=== PATIENT | female | born 1995 | race Caucasian/White ===

== ENCOUNTER 2021-09-08 11:37 | Observation (INO) ==
[2021-09-08] MEDS ORDERED: SODIUM CHLORIDE 0.9% 500 ML IV STA (11:51)
[2021-09-08] MEDS ORDERED: SODIUM CHLORIDE 0.9% 1000ML 1,000 ML IV ONE (12:25)
[2021-09-08] MEDS ORDERED: ONDANSETRON INJ 2 MG/ML 2 ML VIAL IV STA (12:25)
[2021-09-08 12:31] LABS: POC Urine Bilirubin Negative (Negative); POC Urine Blood 250 (Negative); POC Urine Glucose Normal (Normal); POC Urine Ketones Negative (Negative); POC Urine Leukocytes Trace (Negative); POC Urine Nitrite Negative (Negative); POC Urine Protein 1+ (Negative); POC Urine Urobilinogen Normal (Normal); POC Urine pH 6 (4.5-7.5)
--- NOTE | 2021-09-08 12:31 | Emergency Department Note ---
Impression & Plan Hydronephrosis, right, Right ureteral calculus, Right flank pain ED Provider Note NAME: ISABEL GAYLE AGE: 26 SEX: F : 1995 ARRIVES VIA: Walk-In INFORMANT: Patient, ED PROVIDER(S): Quentin Morin DO CHIEF COMPLAINT: Flank pain HPI: The patient is a 26-year-old female who presented to the emergency department for an evaluation of flank pain. The patient presented with her mother. She was at the urology office and was sent to the emergency department for further evaluation. The patient has been dealing with flank pain for almost a month. It sounds like she was recently seen at [facility] and diagnosed with a distal ureteral calculus which was very large. She was followed up by urology today but appeared to be in significant pain. She also stated that she was having severe pain severe nausea severe vomiting and unable to keep down any of her medications. She was sent to the emergency department f or further evaluation as well as possible evaluation by the urologist for further management. The patient states her pain is moderate to severe. It is worsened with ambulation. She did take pain medication but has been having vomiting so she is unsure if this medication is helping her. She denies having any fever. She denies having any diarrhea. She denies chest pain. ROS: See above HPI for pertinent positives & negatives. A total of 10 systems reviewed and were otherwise negative. PAST MEDICAL HISTORY: See Below PAST SURGICAL HISTORY: See Below FAMILY HISTORY: See Below SOCIAL HISTORY: See Below HOME MEDICATIONS: See Below ALLERGIES: See Below VITALS: See Below PHYSICAL EXAMINATION: GENERAL: The patient is awake and alert. She is very anxious appearing and appears to be in significant pain. EYES: The conjunctivae are clear. The pupils are round and reactive. EARS, NOSE, MOUTH AND THROAT: The nose is without any evidence of any deformity. NECK: The neck is nontender and supple. RESPIRATORY: Normal respiratory effort is noted there is no evidence of wheezing rhonchi or rales CARDIOVASCULAR: Regular rate and rhythm noted there no murmurs rubs or gallops normal S1 normal S2. GASTROINTESTINAL: The abdomen is soft and mildly distended. There is no guarding or rigidity appreciated. BACK: No midline tenderness was noted. Significant right CVA tenderness was noted to percussion. MUSCULOSKELETAL/EXTREMITIES: There is no evidence of gross deformity full range of motion is noted in the hips and shoulders. SKIN: There is no obvious evidence of any rash. There are no petechiae, pallor or cyanosis noted. NEUROLOGIC: Patient is awake alert and oriented x3 strength is symmetric patellar reflexes are 2+ bilaterally MEDICAL DECISION MAKING: The patient is a 26-year-old female who presented to the emergency department for right-sided flank pain. The patient was recently diagnosed with ureteral calculi. She had a CAT scan in outside facility. She was following up with urology today but appeared to be in very significant pain. She has a very large ureteral calculus on her most recent CAT scan from [facility]. On ultrasound today she does have hydronephrosis. On KUB there is a suggestion of a ureteral calculus overlying the sacrum. I discussed this case with on-call urology. They have agreed to evaluate the patient in the emergency department. Likely she may require stenting to relieve the hydronephrosis but also will need to have something done with this large distal ureteral calculus. I discussed this plan with the patient. She was agreeable. She was treated with IV fluids and IV pain medication. She was also noted to have an elevation in her peripheral white blood cell count. She was treated with IV antibiotics. I also discussed her case with the on-call [facility] hospitalist group. They have agreed to evaluate the patient in the emergency department. Triage Nursing notes reviewed. Prior medical records reviewed Vital Signs: reviewed and remarkable for no significant abnormalities Differential diagnosis: Renal colic, UTI, appendicitis, diverticulitis, mesenteric ischemia, aortic pathology, infections, inflammatory bowel disease, PUD, biliary pathology, as well as other pathologies. ER treatment provided: See below Diagnostics interpreted by me: ECG: none Cardiac Monitoring: An order was placed for continuous cardiac monitoring. The monitor shows a rate of 62 bpm with sinus rhythm. Laboratory studies: As stated above and show below. Imaging studies: See below Consultation(s): I discussed this case with Kae who is on-call for the [facility] urology group. They will evaluate the patient in the emergency department for further management. I discussed this [facility]/Surg History Medical History Hydronephrosis, right Right ureteral calculus Social History Feels Safe at Home: Yes Allergies Allergies Allergy/AdvReac Type Severity Reaction Status Date / Time No Known Allergies Allergy Unverified 09/08/21 14:20 Home Meds Home Medications Medication Instructions Recorded Confirmed diclofenac sodium 50 mg 50 mg PO BID PRN 09/08/21 09/08/21 tablet,delayed release hydrocodone 5 mg-acetaminophen 325 1 tab PO DAILY PRN 09/08/21 09/08/21 mg tablet tamsulosin 0.4 mg capsule 0.4 mg PO QAM 09/08/21 09/08/21 Results & Data (ED) Vital Signs Vital Signs - 24 hr 09/08/21 11:49 09/08/21 12:30 09/08/21 12:33 Temperature 36.5 C Temperature Source Oral Pulse Rate 83 78 Pulse Rate [Apical] 69 Pulse Rate from SpO2 Sensor 72 Pulse Rhythm Regular Pulse Strength Normal Respiratory Rate 20 19 20 Respiratory Effort / Characteristics Non-Labored Spontaneous Non-Labored Spontaneous Respiratory Depth Normal Normal Respiratory Pattern Regular Regular Blood Pressure 114/70 Blood Pressure [Right Arm] 111/82 Blood Pressure Mean 84 Blood Pressure Mean [Right Arm] 91 Pulse Oximetry 100 96 Oxygen Delivery Method Room Air Room Air Sepsis Recent Fever Within 48 Hours No Sepsis New/Unexplained Change in Mental Status N/A Sepsis Action Taken by Nursing No Action Required 09/08/21 13:05 09/08/21 13:52 09/08/21 14:40 Temperature Temperature Source Pulse Rate 78 85 62 Pulse Rate [Apical] Pulse Rate from SpO2 Sensor 82 Pulse Rhythm Pulse Strength Respiratory Rate 13 16 20 Respiratory Effort / Characteristics Respiratory Depth Respiratory Pattern Blood Pressure 122/76 111/72 Blood Pressure [Right Arm] Blood Pressure Mean 91 85 Blood Pressure Mean [Right Arm] Pulse Oximetry 99 99 Oxygen Delivery Method Room Air Sepsis Recent Fever Within 48 Hours Sepsis New/Unexplained Change in Mental Status Sepsis Action Taken by [facility] Medications Current Medication List: was personally reviewed by me Laboratory Data Attestation: I reviewed the patient's lab results. Result diagrams: 09/08/21 12:20 09/08/21 12:20 Lab Results 09/08/21 09/08/21 09/08/21 Range/Units 12:17 12:17 12:20 WBC 15.36 H (4.8-10.8) K/uL RBC 4.55 (4.2-5.4) M/uL Hgb 13.6 (12.0-16.0) g/dL Hct 40.9 (37-47) % MCV 89.9 (80-100) fL MCH 29.9 (25-34) pg MCHC 33.3 (32-36) g/dL RDW Std Deviation 44.1 (36.4-46.3) fL RDW Coeff of Cady 13.4 (11.5-14.5) % Plt Count 284 (130-400) K/uL MPV 9.4 (7.4-10.4) fL Sodium (136-145) mmol/L Potassium (3.5-5.1) mmol/L Chloride (98-107) mmol/L Carbon Dioxide (21-32) mmol/L Anion Gap (3-11) BUN (7-18) mg/dl Creatinine (0.6-1.2) mg/dl Est Cr Clr Drug Dosing ml/min Est GFR ( Amer) ml/min Est GFR (Non-Af Amer) ml/min BUN/Creatinine Ratio (10-20) Glucose (70-99) mg/dl Calcium (8.5-10.1) mg/dl HCG, Qual (Negative) Urine Color Yellow Urine Appearance Clear (Clear) Urine pH 8.0 H (4.5-7.5) POC Urine pH 6 (4.5-7.5) Ur Specific Ambrose 1.019 (1.000-1.030) Urine Protein Negative (Negative) POC Urine Protein 1+ H (Negative) Urine Glucose (UA) Negative (Negative) POC Ur Glucose (UA) Normal (Normal) Urine Ketones 1+ H (Negative) POC Urine Ketones Negative (Negative) Urine Blood 2+ H (Negative) POC Urine Blood 250 H (Negative) Urine Nitrite Negative (Negative) POC Urine Nitrite Negative (Negative) Urine Bilirubin Negative (Negative) POC Urine Bilirubin Negative (Negative) Urine Urobilinogen Negative (Negative) POC Urine Urobilinogen Normal (Normal) Ur Leukocyte Esterase Negative (Negative) POC U Leukocyte Esteras Trace H (Negative) Urine WBC (Auto) 5-10 H (0-5) /hpf Urine RBC (Auto) 10-30 H (0-4) /hpf U Hyaline Cast (Auto) 1-5 (0-5) /lpf U Epithel Cells (Auto) 20-30 H (0-5) /lpf Urine Bacteria (Auto) Negative (Negative) POC Ur Test NEG (NEG) COVID-19 Eval Order SARS-CoV-2 (PCR) (Negative) 09/08/21 09/08/21 09/08/21 Range/Units 12:20 13:06 13:06 WBC (4.8-10.8) K/uL RBC (4.2-5.4) M/uL Hgb (12.0-16.0) g/dL Hct (37-47) % MCV (80-100) fL MCH (25-34) pg MCHC (32-36) g/dL RDW Std Deviation (36.4-46.3) fL RDW Coeff of Cady (11.5-14.5) % Plt Count (130-400) K/uL MPV (7.4-10.4) fL Sodium 138 (136-145) mmol/L Potassium 4.1 (3.5-5.1) mmol/L Chloride 107 (98-107) mmol/L Carbon Dioxide 23 (21-32) mmol/L Anion Gap 8.0 (3-11) BUN 12 (7-18) mg/dl Creatinine 0.99 (0.6-1.2) mg/dl Est Cr Clr Drug Dosing 84.5 ml/min Est GFR ( Amer) 91.8 ml/min Est GFR (Non-Af Amer) 79.2 ml/min BUN/Creatinine Ratio 11.8 (10-20) Glucose 108 H (70-99) mg/dl Calcium 9.4 (8.5-10.1) mg/dl HCG, Qual (Negative) Urine Color Urine Appearance (Clear) Urine pH (4.5-7.5) POC Urine pH (4.5-7.5) Ur Specific Ambrose (1.000-1.030) Urine Protein (Negative) POC Urine Protein (Negative) Urine Glucose (UA) (Negative) POC Ur Glucose (UA) (Normal) Urine Ketones (Negative) POC Urine Ketones (Negative) Urine Blood (Negative) POC Urine Blood (Negative) Urine Nitrite (Negative) POC Urine Nitrite (Negative) Urine Bilirubin (Negative) POC Urine Bilirubin (Negative) Urine Urobilinogen (Negative) POC Urine Urobilinogen (Normal) Ur Leukocyte Esterase (Negative) POC U Leukocyte Esteras (Negative) Urine WBC (Auto) (0-5) /hpf Urine RBC (Auto) (0-4) /hpf U Hyaline Cast (Auto) (0-5) /lpf U Epithel Cells (Auto) (0-5) /lpf Urine Bacteria (Auto) (Negative) POC Ur Test (NEG) COVID-19 Eval Order Covid19 at [facility] SARS-CoV-2 (PCR) NEGATIVE (Negative) 09/08/21 Range/Units 14:00 WBC (4.8-10.8) K/uL RBC (4.2-5.4) M/uL Hgb (12.0-16.0) g/dL Hct (37-47) % MCV (80-100) fL MCH (25-34) pg MCHC (32-36) g/dL RDW Std Deviation (36.4-46.3) fL RDW Coeff of Cady (11.5-14.5) % Plt Count (130-400) K/uL MPV (7.4-10.4) fL Sodium (136-145) mmol/L Potassium (3.5-5.1) mmol/L Chloride (98-107) mmol/L Carbon Dioxide (21-32) mmol/L Anion Gap (3-11) BUN (7-18) mg/dl Creatinine (0.6-1.2) mg/dl Est Cr Clr Drug Dosing ml/min Est GFR ( Amer) ml/min Est GFR (Non-Af Amer) ml/min BUN/Creatinine Ratio (10-20) Glucose (70-99) mg/dl Calcium (8.5-10.1) mg/dl HCG, Qual Negative (Negative) Urine Color Urine Appearance (Clear) Urine pH (4.5-7.5) POC Urine pH (4.5-7.5) Ur Specific Ambrose (1.000-1.030) Urine Protein (Negative) POC Urine Protein (Negative) Urine Glucose (UA) (Negative) POC Ur Glucose (UA) (Normal) Urine Ketones (Negative) POC Urine Ketones (Negative) Urine Blood (Negative) POC Urine Blood (Negative) Urine Nitrite (Negative) POC Urine Nitrite (Negative) Urine Bilirubin (Negative) POC Urine Bilirubin (Negative) Urine Urobilinogen (Negative) POC Urine Urobilinogen (Normal) Ur Leukocyte Esterase (Negative) POC U Leukocyte Esteras (Negative) Urine WBC (Auto) (0-5) /hpf Urine RBC (Auto) (0-4) /hpf U Hyaline Cast (Auto) (0-5) /lpf U Epithel Cells (Auto) (0-5) /lpf Urine Bacteria (Auto) (Negative) POC Ur Test (NEG) COVID-19 Eval Order SARS-CoV-2 (PCR) (Negative) Administered Medications Morphine Sulfate (Morphine Sulfate 4 Mg/Ml 1 Ml Carp\Vial) 4 mg IV Q30M PRN PRN Reason: Pain Stop: 09/22/21 12:24 Last Admin: 09/08/21 13:53 Dose: 4 mg Documented by: [id number] Admin: 09/08/21 12:32 Dose: 4 mg Documented by: [id number] Discontinued Medications Sodium Chloride (Nss) 500 mls @ 999 mls/hr IV .Q31M STA Stop: 09/08/21 12:21 Last Admin: 09/08/21 12:32 Dose: Not Given Documented by: [id number] Sodium Chloride (Nss 1000ml) 1,000 mls @ 999 mls/hr IV .Q1H1M ONE Stop: 09/08/21 13:25 Last Infusion: 09/08/21 13:54 Dose: 0 mls/hr Documented by: [id number] Admin: 09/08/21 12:31 Dose: 999 mls/hr Documented by: [id number] Ceftriaxone Sodium (Rocephin) 1,000 mg in 50 mls @ 100 mls/hr IV NOW STA Stop: 09/08/21 13:59 Last Infusion: 09/08/21 14:58 Dose: 0 mls/hr Documented by: [id number] Admin: 09/08/21 14:15 Dose: 100 mls/hr Documented by: [id number] Ondansetron HCl (Ondansetron Inj 2 Mg/Ml 2 Ml Vial) 4 mg IV NOW STA Stop: 09/08/21 12:26 Last Admin: 09/08/21 12:31 Dose: 4 mg Documented by: [id number] Imaging Data Radiologist's Impression: KUB X-Ray 09/08/21 12:25 XR KUB/Abdomen 1 view CLINICAL HISTORY: right flank pain. COMPARISON STUDY: No previous studies for comparison. TECHNIQUE: Single view of the abdomen. FINDINGS: The bowel gas pattern is within normal limits without evidence for dilatation or obstruction. Surgical clips are present previous cholecystectomy. There is no evidence for organomegaly or gross intra-abdominal mass. There is an approximately 7 mm calcific density superimposed over the second sacral segment on the right. A mid ureteral calculus cannot be excluded. 1 to 2 mm calcification are also seen within the pelvis on the right which probably represent phleboliths. Distal ureteral calculus cannot be excluded. No acute osseous pathology. IMPRESSION: 1.Multiple calcifications are present on the right which may be within the ureter as noted. If indicated clinically, CT of the abdomen and pelvis without contrast would be the study of choice for further evaluation. ACT 112: Negative or not required by law. Electronically signed by: Denton Brooke M.D. 09/08/2021 1:53 PM Renal Ultrasound 09/08/21 12:25 RENAL ULTRASOUND CLINICAL HISTORY: Right flank pain. COMPARISON STUDY: None. TECHNIQUE: Sonography of the kidneys and the urinary bladder was performed. FINDINGS: Right kidney measures 12.7 x 5.7 x 7.1 cm and the left measures 11.8 x 5.1 x 4.8 cm. There is moderate to severe right hydroureteronephrosis. A ureteral calculus is not visualized however these may be sonographically occult. A 9 mm cyst within the left kidney is present. There is no left hydronephrosis. There is a probable 5 mm right renal calculus. There is an apparent 8 mm hypoechoic focus within an upper pole calyx. This is of questionable significance. Bladder is suboptimally assessed given underdistention. Ureteral jets were not visualized. IMPRESSION: 1. Moderate to severe right hydroureteronephrosis. No ureteral calculus identified although these may be occult by sonography. 2. 5 mm right renal calculus. ACT 112: Negative or not required by law. Electronically signed by: Aj Davidson M.D. 09/08/2021 1:02 PM Discharge Plan Visit Data Chief Complaint: Kidney Stone Stated Complaint: RT SIDED KIDNEY STONES ED Provider: Quentin Morin Discharge Problem: Hydronephrosis, right, Right ureteral calculus, Right flank pain Patient Disposition: Being Evaluated by Hospitalist Forms Stand Alone Forms: [facility] Prescriptions Prescriptions: No Action hydrocodone-acetaminophen 5-325 mg tablet 1 tab PO DAILY PRN (Reason: Pain) RF: 0 tamsulosin 0.4 mg capsule 0.4 mg PO QAM RF: 0 diclofenac sodium 50 mg tablet,delayed release (DR/EC) 50 mg PO BID PRN (Reason: Pain) RF: 0 Referrals Referrals: Unknown,Unknown [] -
[2021-09-08] MEDS: MoRPHine SULFATE 4 MG/ML 1 ML CARP\\VIAL IV PRN ×2 (12:32→13:53)
[2021-09-08 12:36] LABS: Hematocrit (blood only) 40.9 % (37-47); Hemoglobin 13.6 g/dL (12.0-16.0); Mean Corpuscular Hemoglobin 29.9 pg (25-34); Mean Corpuscular Hgb Conc 33.3 g/dL (32-36); Mean Corpuscular Volume 89.9 fL (80-100); Mean Platelet Volume 9.4 fL (7.4-10.4); Platelet Count 284 K/uL (130-400); RDW Coefficient of Variation 13.4 % (11.5-14.5); RDW Standard Deviation 44.1 fL (36.4-46.3); Red Blood Count 4.55 M/uL (4.2-5.4); White Blood Count 15.36 K/uL (4.8-10.8)
[2021-09-08 12:44] LABS: Appearance Urine Clear (Clear); Bacteria Urine Automated Negative (Negative); Bilirubin Urine Negative (Negative); Blood Urine 2+ (Negative); Color Urine Yellow; Epithelial Cell Urine Auto 20-30 /lpf (0-5); Glucose Urine UA Negative (Negative); Ketones Urine 1+ (Negative); Leukocyte Esterase Urine Negative (Negative); Nitrite Urine Negative (Negative); Protein Urine Negative (Negative); Specific Gravity Urine 1.019 (1.000-1.030); Urobilinogen Urine Negative (Negative)
[2021-09-08 12:57] LABS: BUN Creatinine Ratio 11.8 (10-20); Calcium 9.4 mg/dl (8.5-10.1); Creatinine Clr Calc Pharmacy 84.5 ml/min; Est GFR (African American) 91.8 ml/min; Est GFR (Non-African American) 79.2 ml/min; Potassium 4.1 mmol/L (3.5-5.1)
--- NOTE | 2021-09-08 13:04 | Ultrasound Report ---
RENAL ULTRASOUND CLINICAL HISTORY: Right flank pain. COMPARISON STUDY: None. TECHNIQUE: Sonography of the kidneys and the urinary bladder was performed. FINDINGS: Right kidney measures 12.7 x 5.7 x 7.1 cm and the left measures 11.8 x 5.1 x 4.8 cm. There is moderate to severe right hydroureteronephrosis. A ureteral calculus is not visualized however thes e may be sonographically occult. A 9 mm cyst within the left kidney is present. There is no left hydr onephrosis. There is a probable 5 mm right renal calculus. There is an apparent 8 mm hypoechoic focus within an upper pole calyx. This is of questionable significance. Bladder is suboptimally assessed g iven underdistention. Ureteral jets were not visualized. IMPRESSION: 1. Moderate to severe right hydroureteronephrosis. No ureteral calculus identified although these may be occult by sonography. 2. 5 mm right renal calculus. ACT 112: Negative or not required by law. Electronically signed by: Aj Davidson M.D. 09/08/2021 1:02 PM
[2021-09-08] MEDS ORDERED: cefTRIAXone SODIUM 1,000 MG/50 ML BAG IV STA (13:30)
--- NOTE | 2021-09-08 13:40 | History & Physical Report ---
Date of Service September 08, 2021 Assessment & Plan (1) Hydronephrosis, right: Plan: - Admit to [facility] - Continue with IVFs, pain control, bowel regimen - Imaging reviewed: Renal U/S here today showed moderate to severe right hydroureteronephrosis. No ureteral calculus identified although these may be occult by sonography. 5 mm right renal calculus. - Imaging from [place] showed 8.6 mm calculus proximal R ureter at R UPJ with moderate hydronephrosis on 09/03. - Keep NPO for now with anticipated stent placement / stone removal - Urology consulted - appreciate recs - Leukocytosis with WBC 15.36, afebrile - IV ceftriaxone for preop - Last PO intake was last night, pt does not take any medications routinely, continue IVFs - UA appears clear, follow urine culture, Hcg negative - COVID-19 negative on admission, recommended vaccination at bedside as pt is n ot vaccinated. - Mother at bedside, all questions and concerns were addressed (2) Right ureteral calculus: Plan: - As above (3) Bilateral nephrolithiasis: Plan: - As above (4) Right flank pain: Plan: - As above DVT ppx: - teds, ambulatory CODE: Full Dispo: From home, likely to remain in the hospital x 1-2 days History of Present Illness Chief Complaint: flank pain Primary Care Provider: Tom Jimenez This is a 26 yo F without significant PMHx of who presents with R flank pain, nausea, vomiting and chills that has been ongoing since Saturday. She reports having generalized abdominal pain on and off for the past month but thought that it was related to something she ate, dehydration, etc. She presented on Saturday night (5 days ago) to [facility] due to worsening abdominal pain, was found to have kidney stone and moderate hydronephrosis and was given prescription for hydrocodone, flomax and diclofenac sodium, with instructions to follow-up with urology as an outpatient. Her pain has progressed since then, abdominal pain rated as 7/10, radiates to R flank and RLQ, and has been nauseous/vomiting x24 hours. Denies fever, chills or sweats. She denies ever having previous kidney stone, and does not think anything passed since last being seen at [facility]. Last menses was 1 week ago, pt is not currently on control. She is not vaccinated for COVID-19. Pt does not take any medications routinely. Last time she ate was last evening at dinner. Patient has leukocytosis with a white count of 15.36, her creatinine is normal at 0.99. UA appears fairly clean, no concern for infection, will follow culture. Ms. Hernandez elected to proceed with cystoscopy, right ureteronephroscopy, retrograde pyelogram, laser destruction or extraction of stone, and right stent insertion. Medical/Surgical Hx: wisdom teeth removal Social Hx: no drinking, non smoking. 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 Has two children who live with her. Family Hx: Father with hx of nephrolithiasis, denies other significant family history. Allergies Allergy/AdvReac Type Severity Reaction Status Date / Time No Known Allergies Allergy Unverified 09/08/21 14:20 Home Medications Medication Instructions Recorded Confirmed Type diclofenac sodium 50 mg 50 mg PO BID PRN 09/08/21 09/08/21 History tablet,delayed release docusate sodium 100 mg capsule 100 mg PO BID #20 cap 09/08/21 Rx ([facility]) hydrocodone 5 mg-acetaminophen 325 1 tab PO DAILY PRN 09/08/21 09/08/21 History mg tablet oxybutynin chloride 5 mg tablet 5 mg PO Q8H PRN #30 tab 09/08/21 Rx sulfamethoxazole 800 1 tab PO BID #6 tab 09/08/21 Rx mg-trimethoprim 160 mg tablet (Bactrim DS) tamsulosin 0.4 mg capsule 0.4 mg PO QAM 09/08/21 09/08/21 History tamsulosin 0.4 mg capsule (Flomax) 0.4 mg PO DAILY #30 cap 09/08/21 Rx Past Med/Surg History Medical History Hydronephrosis, right Right ureteral calculus Social History Smoking Status: Current every day smoker Cigarettes Per Day: 1/2 pack.; Do You Dip or Chew Tobacco: No; Hx Alcohol Use: Yes Hx Substance Use: No Preferred Language: Latvian Laminator Hand Required: No Beliefs That Will Affect Care: None Current Living Situation: Family Feels Safe at Home: Yes Assistive Devices: Glasses Review of Systems Review of Systems: Constitutional: No fever, sweats or chills Eyes: No diplopia, no worsening or blurred vision ENT: normal hearing, no trouble swallowing Respiratory: No cough, sputum, dyspnea at rest or on exertion Cardiovascular: No chest pain, tightness or palpitations Abdomen: As per HPI, + pain, +nausea, +vomiting, no diarrhea or constipation Musculoskeletal: No joint pain, calf pain, swelling Neurologic: No weakness, numbness/tingling, or balance problems Psychiatric: No anxiety or depression Skin: No rash or itch Physical Exam Physical Exam: General: awake, alert, no apparent distress, BMI 25.4 Head: Normocephalic, atraumatic ENT: PERRL, EOMI, no pharyngeal exudate, mucous membranes moist Chest: Clear to auscultation, on room air, no adventitious breath sounds Cardiac: Regular rate and rhythm, no murmur, no JVD, normal peripheral pulses, good capillary refill Abdominal: NABS x 4 quadrants, soft, nondistended, + tender to palpation RLQ and flank region, no rebound or guarding Extremities: Normal inspection, no peripheral edema or erythema, calfs nontender to palpation Psych: Normal mood and affect Neuro: AAO x 3, strength intact bilaterally and rated 5/5, no motor deficits, speech is clear, no peripheral sensory deficits Results & Data Results & Data ([facility]) Vital Signs (Past 12 Hours) Vital Signs Temp Pulse Pulse Resp BP BP Pulse Ox 09/08/21 12:33 69 20 111/82 96 09/08/21 11:49 36.5 C 83 20 114/70 Laboratory Results Short CBC 09/08/21 Range/Units 12:20 WBC 15.36 H (4.8-10.8) K/uL Hgb 13.6 (12.0-16.0) g/dL Hct 40.9 (37-47) % Plt Count 284 (130-400) K/uL BMP 09/08/21 12:20 Sodium 138 Potassium 4.1 Chloride 107 Carbon Dioxide 23 BUN 12 Creatinine 0.99 Glucose 108 H Calcium 9.4 Urine 09/08/21 Range/Units 12:17 Urine Color Yellow Urine Appearance Clear (Clear) Urine pH 8.0 H (4.5-7.5) Ur Specific [place] 1.019 (1.000-1.030) Urine Protein Negative (Negative) Urine Glucose (UA) Negative (Negative) Diagnostic Findings KUB X-Ray 09/08/21 12:25 XR KUB/Abdomen 1 view CLINICAL HISTORY: right flank pain. COMPARISON STUDY: No previous studies for comparison. TECHNIQUE: Single view of the abdomen. FINDINGS: The bowel gas pattern is within normal limits without evidence for dilatation or obstruction. Surgical clips are present previous cholecystectomy. There is no evidence for organomegaly or gross intra-abdominal mass. There is an approximately 7 mm calcific density superimposed over the second sacral segment on the right. A mid ureteral calculus cannot be excluded. 1 to 2 mm calcification are also seen within the pelvis on the right which probably represent phleboliths. Distal ureteral calculus cannot be excluded. No acute osseous pathology. IMPRESSION: 1.Multiple calcifications are present on the right which may be within the ureter as noted. If indicated clinically, CT of the abdomen and pelvis without contrast would be the study of choice for further evaluation. ACT 112: Negative or not required by law. Electronically signed by: Denton Brooke M.D. 09/08/2021 1:53 PM Renal Ultrasound 09/08/21 12:25 RENAL ULTRASOUND CLINICAL HISTORY: Right flank pain. COMPARISON STUDY: None. TECHNIQUE: Sonography of the kidneys and the urinary bladder was performed. FINDINGS: Right kidney measures 12.7 x 5.7 x 7.1 cm and the left measures 11.8 x 5.1 x 4.8 cm. There is moderate to severe right hydroureteronephrosis. A ureteral calculus is not visualized however these may be sonographically occult. A 9 mm cyst within the left kidney is present. There is no left hydronephrosis. There is a probable 5 mm right renal calculus. There is an apparent 8 mm hypoechoic focus within an upper pole calyx. This is of questionable sig nificance. Bladder is suboptimally assessed given underdistention. Ureteral jets were not visualized. IMPRESSION: 1. Moderate to severe right hydroureteronephrosis. No ureteral calculus identified although these may be occult by sonography. 2. 5 mm right renal calculus. ACT 112: Negative or not required by law. Electronically signed by: Aj Davidson M.D. 09/08/2021 1:02 PM Code Status & VTE Plan Code Status Full code Supervising Physician Co-Signing Physician Notes I have seen and examined the patient and have discussed the case with the provider above. I agree with the assessment and plan as stated. The patient is a 26 yo F with no chronic medical history, no use of prescription or OTC medications and no h/o kidney stone in the past who presents with persistent severe R flank pain from a known 8mm UPJ stone on the right. Hydronephrosis on imaging as above. She reports having symptoms intermittently for about one month prior to seeking out care on 09/03 [facility]. She reports her pain is improved since medication given in the ER. She denies any UTI symptoms, chest pain, SOB, fevers. She reports some chills that began this morning. She is currently hemodynamically stable and afebrile and in no acute distress. She is WNWD with warm and dry skin. Heart and lung exam reveal no abnormalities and her abdomen is soft, NT and not distended. She does have R CVA tenderness. She was sent for ureteral stent placement with Dr. Santos shortly following my evaluation. In the OR, bladder appeared injected and was globally inflamed. She had a right pyelogram showing right hydronephrosis and kinking of the ureter made stenting difficult. I evaluated her post-operatively on the floor and she was doing very well. She denied any pain and was tolerating PO. She was inclined to stay overnight to ensure everything was improved and stable in the morning. Plan for dc home in am as long as she is doing well with close outpatient followup with Dr. Montalvo. Uday, DO
--- NOTE | 2021-09-08 13:50 | Urology Consultation ---
Date of Consultation September 08, 2021 Assessment & Plan (1) Right ureteral calculus: (2) Hydronephrosis, right: (3) Right flank pain: 26 year-old female patient admitted with intractable right flank pain with associated nausea/vomiting secondary to obstructing 8 mm right UPJ calculus. -Plan of care reviewed with Dr. Montalvo. -Patient afebrile. -Labs reviewed - white count elevated at 15.36, creatinine normal at 0.99. -Urinalysis not overly suspicious for infection, urine culture pending. -Imaging reviewed - CT abd/pelvis notable for 8 mm right UPJ calculus with moderate amount of hydronephrosis. -Discussed treatment options with patient in detail including placement of ureteral stent inpatient versus outpatient surgical intervention with stone treatment/ureteral stent insertion. -Patient agreeable to proceeding with surgical intervention today. -Keep NPO. -Continue supportive care, pain control, close monitoring. Findings reviewed with Dr. Montalvo. Given her intractable right flank pain with associated nausea/vomiting in the context of an obstructing 8 mm right UPJ stone, will proceed with OR for cystoscopy, right retrograde pyelogram and right ureteral stent placement. Risks and benefits of procedure discussed and to be reviewed with patient by Dr. Montalvo. OR notified. COVID-19 negative. Patient covered with IV Ceftriaxone which was given in ER. Supervising Physician Co-Signing Physician Notes Discussed patient with TAE. Agree with plan. OR for cystoscopy with retrograde pyelogram and right stent placement due to pain and unlikelihood of passing stone. Will bring back for outpatient definitive stone treatment in future. History of Present Illness Reason for Consultation: Right flank pain, obstructing calculus Requesting Physician: Dr. Morin History of Present Illness 26 year-old female patient, with no significant past medical history, presents to the emergency room today with complaints of intractable right flank pain. Patient was seen at [facility] ER on 09/03 with similar com plaints. Symptoms started roughly one month ago. She was diagnosed at that time with an obstructing 8 mm right UPJ calculus with moderate right hydronephrosis. She was discharged home and instructed to follow-up with urology service. Patient was seen at [facility] urology office today and had continued complaints of severe right flank pain with associated nausea/vomiting/chills. Pending admission to hospital secondary to intractable right flank pain. Urology consulted for obstructing ureteral calculus. Patient denies history of stones, has not followed with urology in the past. No prior surgical history. States her father has history of nephrolithiasis. Chart review: Afebrile Wbc 15.36 Hgb 13.6 Creatinine 0.99 Urinalysis with trace leukocytes, 5-10 wbc, 10-30 rbc, 20-30 epi, negative bacteria, negative nitrates Imaging - CT abd/pelvis 09/03 from [facility] - 1.) 8.6 mm calculus proximal right ureter at the right ureteropelvic junction with the moderate right hydronephrosis. Additional right intrarenal calculi are seen, the largest of which is 10 mm at this time. 2.) 8 mm left upper pole renal calculus without left hydronephrosis at this time. 3.) Mildly diffuse enlarged uterus. 08/08/21 Renal Ultrasound - IMPRESSION: 1. Moderate to severe right hydroureteronephrosis. No ureteral calculus identified although these may be occult by sonography. 2. 5 mm right renal calculus. KUB - IMPRESSION: 1.Multiple calcifications are present on the right which may be within the ureter as noted. If indicated clinically, CT of the abdomen and pelvis without contrast would be the study of choice for further evaluation. Patient seen and examined at bedside. She is alert, awake, non-toxic on exam. Continues to have right-sided flank pain which radiates into right abdomen. Does report nausea, last vomited at urology office. Denies dysuria or hematuria. Does report urinary frequency/urgency at times. Denies fevers but does report chills. Denies dizziness/lightheadedness. No chest pain or shortness of breath. Last ate yesterday evening, did have small amount to drink this AM but vomited afterwards. No stone passage since ER visit. Denies additional urologic concerns today. Allergies Allergy/AdvReac Type Severity Reaction Status Date / Time No Known Allergies Allergy Unverified 09/08/21 14:20 Home Medications Medication Instructions Recorded Confirmed Type diclofenac sodium 50 mg 50 mg PO BID PRN 09/08/21 09/08/21 History tablet,delayed release hydrocodone 5 mg-acetaminophen 325 1 tab PO DAILY PRN 09/08/21 09/08/21 History mg tablet tamsulosin 0.4 mg capsule 0.4 mg PO QAM 09/08/21 09/08/21 History Patient History Medical History Hydronephrosis, right Right ureteral calculus Social History Feels Safe at Home: Yes Review of Systems Constitutional: as per Subjective / HPI and + chills; no fever Eyes: no problem reported Ear, Nose, Mouth, Throat: no problem reported Respiratory: no cough and no dyspnea Cardiovascular: no chest pain and no edema Gastrointestinal: as per Subjective / HPI Genitourinary: as per Subjective / HPI Musculoskeletal: as per Subjective / HPI Neurologic: no dizziness Endocrine: no fatigue Hematologic / Lymphatic: no easy bleeding and no easy bruising Physical Exam Constitutional: well developed and well nourished; no acute distress and not ill appearing ENMT: Ears: no external ear abnormality Nose: no external nose abnormality Neck: normal visual inspection and trachea midline Respiratory: normal respiratory effort and able to speak in complete sentences; no respiratory distress and no audible wheezes Cardiovascular: Extremities: no calf tenderness and no edema Gastrointestinal (Abdomen): Inspection/Auscultation: abdomen normal to inspection; abdomen not distended Percussion/Palpation: + abdomen tender (lower abdomen) and abdomen soft; no guarding Musculoskeletal: Moves all extremities without difficulty. Skin: No visible rashes, lesions, or wounds noted. Neurologic: moves all extremities and awake Psychiatric: Orientation: alert, oriented x 3 and cooperative Affect: euthymic affect Genitourinary: no CVA tenderness Results & Data ([facility]) Vital Signs (Past 12 Hours) Vital Signs Temp Pulse Pulse Resp BP BP Pulse Ox 09/08/21 12:33 69 20 111/82 96 09/08/21 11:49 36.5 C 83 20 114/70 PG Care Time/CCT Total # of Minutes Spent Total Time Spent with Patient: Total time spent is greater than 50% in coordination of care (as documented) at patient's floor/unit and/or counseling patient: Coding Level of Care Code 85071 Inpt Consult Level 4 Diagnoses Right ureteral calculus N20.1 Hydronephrosis, right N13.30 Right flank pain R10.9
--- NOTE | 2021-09-08 13:54 | XRay Report ---
XR KUB/Abdomen 1 view CLINICAL HISTORY: right flank pain. COMPARISON STUDY: No previous studies for comparison. TECHNIQUE: Single view of the abdomen. FINDINGS: The bowel gas pattern is within normal limits without evidence for dilatation or obstruction. Surgica l clips are present previous cholecystectomy. There is no evidence for organomegaly or gross intra-ab dominal mass. There is an approximately 7 mm calcific density superimposed over the second sacral seg ment on the right. A mid ureteral calculus cannot be excluded. 1 to 2 mm calcification are also seen within the pelvis on the right which probably represent phleboliths. Distal ureteral calculus cannot be excluded. No acute osseous pathology. IMPRESSION: 1.Multiple calcifications are present on the right which may be within the ureter as noted. If indica madelaine clinically, CT of the abdomen and pelvis without contrast would be the study of choice for furthe r evaluation. ACT 112: Negative or not required by law. Electronically signed by: Denton Brooke M.D. 09/08/2021 1:53 PM
[2021-09-08 14:35] LABS: Pregnancy Test, Serum Negative (Negative)
[2021-09-08] MEDS ORDERED: ONDANSETRON INJ 2 MG/ML 2 ML VIAL ONE (14:46)
[2021-09-08] MEDS ORDERED: LIDOCAINE 2% 2 ML VIAL/AMP(20MG/ML) INFIL ONE (14:46)
[2021-09-08] MEDS ORDERED: MIDAZOLAM HCL 1 MG/ML 2ML VIAL ONE (14:46)
[2021-09-08] MEDS ORDERED: PROPOFOL IV EMULSION 10 MG/ML 20 ML VIAL IV ONE ×3 (14:46→15:57)
[2021-09-08] MEDS ORDERED: fentaNYL citrate 100 MCG/2 ML VIAL ONE (14:46)
--- NOTE | 2021-09-08 15:11 | Anesthesiology Consultation ---
Date of Service September 08, 2021 Assessment & Plan (1) Encounter for pre-operative examination: Chart Review Chart Review: Acceptable Risk for Surgery and Patient NOT seen in Pre Admission Testing Consults Requested none History Surgery Operation Date: 09/08/21 13:00 Proposed Procedures p Cystoscopy, Right Retrograde Pyelogram Right Ureteral Stent Insertion - Rico Montalvo MD Height/Weight Height: 5 ft 7 in Weight: 73.5 kg Allergies Allergy/AdvReac Type Severity Reaction Status Date / Time No Known Allergies Allergy Unverified 09/08/21 14:20 Medications Home Medications Medication Instructions Recorded Confirmed Last Taken diclofenac sodium 50 mg 50 mg PO BID PRN 09/08/21 09/08/21 09/07/21 tablet,delayed release hydrocodone 5 mg-acetaminophen 325 1 tab PO DAILY PRN 09/08/21 09/08/21 09/07/21 mg tablet tamsulosin 0.4 mg capsule 0.4 mg PO QAM 09/08/21 09/08/21 09/07/21 Active Medications Generic Name Dose Route Start Last Admin Trade Name Freq PRN Reason Stop Dose Admin Morphine Sulfate 4 mg 09/08/21 12:25 09/08/21 13:53 Morphine Sulfate 4 Mg/Ml 1 Ml Carp\Vial IV 09/22/21 12:24 4 mg Q30M PRN Administration Pain Past Medical History Medical History Hydronephrosis, right Right ureteral calculus Physical Exam Vital Signs Last Vital Signs Temp 36.5 C 09/08/21 11:49 Pulse 62 09/08/21 14:40 Resp 20 09/08/21 14:40 BP 111/72 09/08/21 14:40 Pulse Ox 99 09/08/21 14:40 Testing Laboratory Results 09/08/21 12:20 09/08/21 12:20 Urine Color Yellow 09/08/21 12:17 Urine Appearance Clear (Clear) 09/08/21 12:17 Urine pH 8.0 (4.5-7.5) H 09/08/21 12:17 Ur Specific [place] 1.019 (1.000-1.030) 09/08/21 12:17 Urine Protein Negative (Negative) 09/08/21 12:17 Urine Glucose (UA) Negative (Negative) 09/08/21 12:17 Urine Ketones 1+ (Negative) H 09/08/21 12:17 Urine Nitrite Negative (Negative) 09/08/21 12:17 Ur Leukocyte Esterase Negative (Negative) 09/08/21 12:17 Urine WBC (Auto) 5-10 /hpf (0-5) H 09/08/21 12:17 Urine RBC (Auto) 10-30 /hpf (0-4) H 09/08/21 12:17 U Hyaline Cast (Auto) 1-5 /lpf (0-5) 09/08/21 12:17 U Epithel Cells (Auto) 20-30 /lpf (0-5) H 09/08/21 12:17 Urine Bacteria (Auto) Negative (Negative) 09/08/21 12:17 09/08/21 12:17 POC Ur Test NEG
[2021-09-08] MEDS ORDERED: LABETALOL HCL IV 5 MG/ML 20ML IV PRN (15:14)
[2021-09-08] MEDS ORDERED: ATROPINE SULFATE 0.1 MG/ML 10ML SYR IV PRN (15:14)
[2021-09-08] MEDS ORDERED: PHENYLEPHRINE 100MCG/ML 5ML SYR IV PRN (15:14)
[2021-09-08] MEDS ORDERED: fentaNYL citrate 100 MCG/2 ML VIAL IV PRN (15:14)
[2021-09-08] MEDS ORDERED: HYDROmorphone INJ 1 MG/ML SYRINGE IV PRN (15:14)
[2021-09-08] MEDS ORDERED: ONDANSETRON INJ 2 MG/ML 2 ML VIAL IV PRN ×2 (15:14→17:34)
[2021-09-08] MEDS ORDERED: ePHEDrine sulfate 50 MG/ML AMP IV PRN (15:14)
[2021-09-08] MEDS ORDERED: MEPERIDINE HCL 25 MG/ML CARP/VIAL IV PRN (15:14)
[2021-09-08] MEDS ORDERED: DIATRIZOATE MEGLUMINE 30% 100ML VIAL INSTIL ONE (15:23)
--- NOTE | 2021-09-08 15:23 | Post Operative Brief Note ---
PG Immediate Post Op with CF Date of Surgery September 08, 2021 Pre & Post Diagnosis Operation Date: 09/08/21 13:00 <No data on this case meets the specified criteria> I identified the patient and participated in the time-out.: Yes Procedure Cystoscopy, right retrograde pyelogram, right ureteral stent placement Operation Date: 09/08/21 13:00 <No data on this case meets the specified criteria> Surgeon Rico Montalvo MD Manager Massage Department None Estimated Blood Loss 0 Findings Consistent with Post-Op Diagnosis Very difficult stent. Redundant ureter and large stone. Had to try three different sizes. 6x28 stent in good position Drains Other (6x28 R stent ) Complications None Disposition Accompanied Patient To Recovery: No Disposition: Recovery Room Overlapping Procedure I was present for: the critical portions of procedure.
--- NOTE | 2021-09-08 15:25 | Operative Report ---
PG Post Operative Report Pre & Post Diagnosis Operation Date: 09/08/21 13:00 <No data on this case meets the specified criteria> I identified the patient and participated in the time-out.: Yes Procedure Cystoscopy, right retrograde pyelogram with radiographic interpretation, right ureteral stent placement Operation Date: 09/08/21 13:00 <No data on this case meets the specified criteria> Surgeon Rico Montalvo MD Business Systems Administrator None Estimated Blood Loss 0 Findings Consistent with Post-Op Diagnosis 1. Normal urethra. Bladder appeared injected and was globally inflamed. 2. Right retrograde pyelogram showed significant right hydronephrosis. Kinking of the ureter distally and proximally made stenting difficult along with large stone. 3. Eventually got 6 x 28 cm right ureteral stent in place after trying 3 separate sizes due to kinking of ureter. Specimens None Drains 6 Italian by 28 cm right ureteral stent Anesthesia Type Local Complications None Disposition Accompanied Patient To Recovery: No Disposition: Recovery Room Indications 26 yo female with large right proximal ureteral calculus. Presented to ED due to poor pain control. Consented for right ureteral stent placement due to pain. Description of Procedure After informed consent was obtained, the patient was transported to the operative suite. General anesthesia was induced. They were placed in dorsal lithotomy position and prepped and draped in sterile fashion. They received preoperative ceftriaxone. An appropriate surgical timeout was performed. A 22 Italian rigid scope was inserted per urethra into the bladder. Johnson cystoscopy revealed no stones or lesions but did show globally inflamed, injected bladder. I turned my attention the right ureteral orifice and intubated this with a 5 Italian open-ended catheter. A right retrograde pyelogram was shot which showed kinking of the ureter distally and proximally and significant right hydronephrosis. I initially tried to advance a sensor wire but due to distal kinking, had to swap this out for a zip wire and was eventually able to get this up into the kidney. I advanced the 5 Italian open- ended catheter over the wire and shot a better retrograde pyelogram. I then attempted to swap this out with a sensor wire but met kinking in the proximal ureter and had to switch back to a zip wire. I was able to get a zip wire into the renal pelvis. I initially tried to do a 6x24 and 6x26 stent, however these appeared too short so I opted to place a 6 Italian by 28 cm right ureteral stent. This had a good proximal coil noted under fluoroscopy and a good distal coil noted under direct visualization. The bladder was emptied and the scope was removed. This concluded the end of the case. All counts were correct at the end of the case. I was present, scrubbed, and actively participated for the entire to the procedure. Plan: 1. Will schedule for preop and eventual right stone treatment. I attest to the content of the Intraoperative Record and any orders documented therein. Any exceptions are noted below.
--- NOTE | 2021-09-08 16:16 | Fluoroscopy Report ---
FL retrograde includes kub CLINICAL HISTORY: RT CYSTO STENT COMPARISON STUDY: CT of the abdomen and pelvis September 03, 2021. KUB and renal ultrasound performed earlier today. FLUOROSCOPY TIME: 88 seconds. FLUOROSCOPIC IMAGES: 5 FINDINGS: Fluoroscopy was provided during cystoscopy and right retrograde exam with ureteral stent pl acement. Possible calculus projects over the inferior right renal calculus. IMPRESSION: Fluoroscopy provided during cystoscopy, right retrograde exam and ureteral stent placeme nt. ACT 112: Negative or not required by law. Electronically signed by: Aj Davidson M.D. 09/08/2021 4:15 PM
--- NOTE | 2021-09-08 16:35 | Anesthesiology Progress Note ---
Date of Service September 08, 2021 Anesthesia Post Procedure Vital Signs Vital Signs: Temp Pulse Pulse Pulse Resp BP BP 09/08/21 16:25 74 21 111/72 09/08/21 16:19 36.3 C L 85 20 112/72 09/08/21 15:07 37 C 79 16 124/80 09/08/21 14:40 62 20 111/72 09/08/21 13:52 85 16 122/76 09/08/21 13:05 78 13 09/08/21 12:33 69 20 111/82 09/08/21 12:30 78 19 09/08/21 11:49 36.5 C 83 20 114/70 Pulse Ox 09/08/21 16:25 97 09/08/21 16:19 98 09/08/21 15:07 98 09/08/21 14:40 99 09/08/21 13:52 99 09/08/21 13:05 09/08/21 12:33 96 09/08/21 12:30 100 09/08/21 11:49 Pain Intensity Right Flank: Pain Intensity: 3 Transfer of Care Handoff Completed per policy Notes Mental Status: alert / awake / arousable Patient Amnestic to Procedure: Yes Nausea / Vomiting: adequately controlled Pain: adequately controlled Airway Patency, RR, SpO2: stable & adequate BP & HR: stable & adequate Hydration State: stable & adequate Anesthetic Complications: no major complications apparent and Pt Satisfied with anesthetic care
[2021-09-08] MEDS ORDERED: MoRPHine SULFATE 4 MG/ML 1 ML CARP\\VIAL IV PRN (17:34)
[2021-09-08] MEDS ORDERED: HYDROCODONE/ACETAMOPHEN 5/325MG TAB PO PRN (17:34)
[2021-09-08] MEDS ORDERED: ACETAMINOPHEN 325 MG TAB PO PRN (17:34)
[2021-09-08] MEDS ORDERED: POLYETHYLENE (MIRALAX) 17 GM PACK PO PRN (17:34)
[2021-09-08] MEDS ORDERED: DICLOFENAC SODIUM 25 MG TABDR PO PRN (17:39)
[2021-09-08] MEDS: SODIUM CHLORIDE 0.9% 1000ML 1,000 ML IV SCH (18:07)
[2021-09-09 06:02] LABS: Hematocrit (blood only) 37.7 % (37-47); Hemoglobin 12.3 g/dL (12.0-16.0); Mean Corpuscular Hemoglobin 29.7 pg (25-34); Mean Corpuscular Hgb Conc 32.6 g/dL (32-36); Mean Corpuscular Volume 91.1 fL (80-100); Mean Platelet Volume 9.3 fL (7.4-10.4); Platelet Count 270 K/uL (130-400); RDW Coefficient of Variation 13.5 % (11.5-14.5); RDW Standard Deviation 45.1 fL (36.4-46.3); Red Blood Count 4.14 M/uL (4.2-5.4); White Blood Count 8.11 K/uL (4.8-10.8)
[2021-09-09] MEDS: SODIUM CHLORIDE 0.9% 1000ML 1,000 ML IV SCH (06:13)
[2021-09-09 06:42] LABS: BUN Creatinine Ratio 12.4 (10-20); Calcium 8.9 mg/dl (8.5-10.1); Creatinine Clr Calc Pharmacy 114.6 ml/min; Est GFR (African American) 124.4 ml/min; Est GFR (Non-African American) 107.3 ml/min; Potassium 4.2 mmol/L (3.5-5.1)
--- NOTE | 2021-09-09 07:02 | Electrocardiogram Report ---
Test Reason : Blood Pressure : / mmHG Vent. Rate : 072 BPM Atrial Rate : 072 BPM P-R Int : 192 ms QRS Dur : 080 ms QT Int : 398 ms P-R-T Axes : 055 048 038 degrees QTc Int : 435 ms Normal sinus rhythm Low voltage QRS Nonspecific T wave abnormality No previous ECGs available Confirmed by Stuart Ogden ([id number]) on 09/09/2021 7:01:27 AM Referred By: REFERRED SELF Confirmed By:Stuart Ogden
--- NOTE | 2021-09-09 07:49 | Urology Progress Note ---
Date of Service September 09, 2021 Assessment & Plan (1) Right ureteral calculus: Plan: 26-year-old female with a right obstructing ureteral calculus who is status post cystoscopy with right ureteral stent placement on 09/08/2021 for intractable pain. Pain is improved. Continue regimen. Patient is stable for discharge home from a urologic perspective. I have sent prescriptions for Flomax, Ditropan, stool softener and 3 days of Bactrim. I have advised patient that it is normal to see blood in urine while stent is in place. This is okay as long as she is able to void without issue. I will send a message to schedule follow-up with my office for a preoperative appointment to discuss definitive stone treatment Urology to sign off. Please call with any questions or issues. Thank you for helping us take care of this patient. Admission and Anticipated Discharge Date Admission Date: September 08, 2021 Subjective Patient seen on rounds this morning. Afebrile with stable vital signs. Pain is improved. Voiding without issue. White blood cell count has down trended and has normalized. Creatinine has improved. Feels well enough to be discharged home. Review of Systems Review of Systems: 14 point review of systems negative outside of what is listed above in HPI Physical Exam Physical Exam: General: Alert and oriented, no acute distress HEENT: Normocephalic, mucous membranes moist Cardiovascular: Regular rate Pulmonary: Nonlabored respirations Abdomen: Nondistended Extremities: Moves all 4 spontaneously Neuro: No gross deficits Skin: Warm, dry, no rashes noted Results & Data ([facility]) Vital Signs (Past 12 Hours) Vital Signs Temp Pulse Resp BP Pulse Ox 09/09/21 07:12 36.6 C 71 16 108/75 97 09/09/21 03:25 36.4 C L 69 15 96/60 L 96 09/08/21 21:42 36.4 C L 70 15 93/58 L 96 09/08/21 20:01 36.4 C L 74 15 101/64 95 PG Care Time/CCT Total # of Minutes Spent Total Time Spent with Patient: Total time spent is greater than 50% in coordination of care (as documented) at patient's floor/unit and/or counseling patient: [place] [address] Subseq Hosp Care Lvl 2 Patient Type Established Diagnoses Right ureteral calculus N20.1
[2021-09-09] MEDS ORDERED: TAMSULOSIN HCL 0.4 MG CAP PO SCH (09:00)
[2021-09-09] MEDS ORDERED: bisacodyL 5 MG TABEC PO SCH (09:00)
--- NOTE | 2021-09-09 10:39 | Discharge Summary ---
Date of Service September 09, 2021 Admission HPI Per Admitting Provider This is a 26 yo F without significant PMHx of who presents with R flank pain, nausea, vomiting and chills that has been ongoing since Saturday. She reports having generalized abdominal pain on and off for the past month but thought that it was related to something she ate, dehydration, etc. She presented on Saturday night (5 days ago) to [facility] due to worsening abdominal pain, was found to have kidney stone and moderate hydronephrosis and was given prescription for hydrocodone, flomax and diclofenac sodium, with instructions to follow-up with urology as an outpatient. Her pain has progressed since then, abdominal pain rated as 7/10, radiates to R flank and RLQ, and has been nauseous/vomiting x24 hours. Denies fever, chills or sweats. She denies ever having previous kidney stone, and does not think anything passed since last being seen at [facility]. Last menses was 1 week ago, pt is not currently on control. She is not vaccinated for COVID-19. Pt does not take any medications routinely. Last time she ate was last evening at dinner. Patient has leukocytosis with a white count of 15.36, her creatinine is normal at 0.99. UA appears fairly clean, no concern for infection, will follow culture. Ms. Hernandez elected to proceed with cystoscopy, right ureteronephroscopy, retrograde pyelogram, laser destruction or extraction of stone, and right stent insertion. Medical/Surgical Hx: wisdom teeth removal Social Hx: no drinking, non smoking. 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 Has two children who live with her. Family Hx: Father with hx of nephrolithiasis, denies other significant family history. Admission Exam Per Admitting Provider General: awake, alert, no apparent distress, BMI 25.4 Head: Normocephalic, atraumatic ENT: PERRL, EOMI, no pharyngeal exudate, mucous membranes moist Chest: Clear to auscultation, on room air, no adventitious breath sounds Cardiac: Regular rate and rhythm, no murmur, no JVD, normal peripheral pulses, good capillary refill Abdominal: NABS x 4 quadrants, soft, nondistended, + tender to palpation RLQ and flank region, no rebound or guarding Extremities: Normal inspection, no peripheral edema or erythema, calfs nontender to palpation Psych: Normal mood and affect Neuro: AAO x 3, strength intact bilaterally and rated 5/5, no motor deficits, speech is clear, no peripheral sensory deficits Principal Diagnosis R ureteral calculus obstruction with associated hydronephrosis s/p ureteral stent placement Discharge Exam CONSTITUTIONAL: WNWD, vitals as above, generally well-appearing, NAD EYES: normal conjunctivae, no scleral icterus ENT: external ear and nose normal RESPIRATORY: clear to auscultation bilaterally, no crackles, rales or wheezes, normal respiratory effort CARDIOVASCULAR: regular rate and rhythm, S1 and 2 heard without murmurs, gallops or rubs, no JVD, no peripheral edema GASTROINTESTINAL: soft, nontender, ND, no guarding, R CVA tenderness improved MUSCULOSKELETAL: strength 5/5 throughout, head is normocephalic and atraumatic SKIN: warm and dry NEUROLOGIC: CN 2-12 grossly intact, no sensory deficit, normal cognition, normal speech, no tremor PSYCHIATRIC: alert cooperative and oriented to person, place and time. Euthymic mood, makes good eye contact, language grossly intact, recent and remote memory grossly intact. Discharge Data Allergies Allergy/AdvReac Type Severity Reaction Status Date / Time No Known Allergies Allergy Unverified 09/08/21 14:20 Consultations 09/08/21 13:43 ED Decision to Admit Stat 09/08/21 14:05 Consult Urology Routine Procedures Performed Operation Date: 09/08/21 13:00 Actual Procedures p Cystoscopy, Right Retrograde Pyelogram, Right Ureteral Stent Insertion(Right) - Rico Montalvo MD Ordered Studies Laboratory Results WBC 8.11 K/uL (4.8-10.8) 09/09/21 05:44 RBC 4.14 M/uL (4.2-5.4) L 09/09/21 05:44 Hgb 12.3 g/dL (12.0-16.0) 09/09/21 05:44 Hct 37.7 % (37-47) 09/09/21 05:44 MCV 91.1 fL (80-100) 09/09/21 05:44 MCH 29.7 pg (25-34) 09/09/21 05:44 MCHC 32.6 g/dL (32-36) 09/09/21 05:44 RDW Std Deviation 45.1 fL (36.4-46.3) 09/09/21 05:44 RDW Coeff of Cady 13.5 % (11.5-14.5) 09/09/21 05:44 Plt Count 270 K/uL (130-400) 09/09/21 05:44 MPV 9.3 fL (7.4-10.4) 09/09/21 05:44 Sodium 139 mmol/L (136-145) 09/09/21 05:44 Potassium 4.2 mmol/L (3.5-5.1) 09/09/21 05:44 Chloride 108 mmol/L (98-107) H 09/09/21 05:44 Carbon Dioxide 27 mmol/L (21-32) 09/09/21 05:44 Anion Gap 4.0 (3-11) 09/09/21 05:44 BUN 10 mg/dl (7-18) 09/09/21 05:44 Creatinine 0.77 mg/dl (0.6-1.2) 09/09/21 05:44 Est Cr Clr Drug Dosing 114.6 ml/min 09/09/21 05:44 Est GFR ( Amer) 124.4 ml/min 09/09/21 05:44 Est GFR (Non-Af Amer) 107.3 ml/min 09/09/21 05:44 BUN/Creatinine Ratio 12.4 (10-20) 09/09/21 05:44 Glucose 93 mg/dl (70-99) 09/09/21 05:44 Calcium 8.9 mg/dl (8.5-10.1) 09/09/21 05:44 HCG, Qual Negative (Negative) 09/08/21 14:00 Urine Color Yellow 09/08/21 12:17 Urine Appearance Clear (Clear) 09/08/21 12:17 Urine pH 8.0 (4.5-7.5) H 09/08/21 12:17 POC Urine pH 6 (4.5-7.5) 09/08/21 12:17 Ur Specific [place] 1.019 (1.000-1.030) 09/08/21 12:17 Urine Protein Negative (Negative) 09/08/21 12:17 POC Urine Protein 1+ (Negative) H 09/08/21 12:17 Urine Glucose (UA) Negative (Negative) 09/08/21 12:17 POC Ur Glucose (UA) Normal (Normal) 09/08/21 12:17 Urine Ketones 1+ (Negative) H 09/08/21 12:17 POC Urine Ketones Negative (Negative) 09/08/21 12:17 Urine Blood 2+ (Negative) H 09/08/21 12:17 POC Urine Blood 250 (Negative) H 09/08/21 12:17 Urine Nitrite Negative (Negative) 09/08/21 12:17 POC Urine Nitrite Negative (Negative) 09/08/21 12:17 Urine Bilirubin Negative (Negative) 09/08/21 12:17 POC Urine Bilirubin Negative (Negative) 09/08/21 12:17 Urine Urobilinogen Negative (Negative) 09/08/21 12:17 POC Urine Urobilinogen Normal (Normal) 09/08/21 12:17 Ur Leukocyte Esterase Negative (Negative) 09/08/21 12:17 POC U Leukocyte Esteras Trace (Negative) H 09/08/21 12:17 Urine WBC (Auto) 5-10 /hpf (0-5) H 09/08/21 12:17 Urine RBC (Auto) 10-30 /hpf (0-4) H 09/08/21 12:17 U Hyaline Cast (Auto) 1-5 /lpf (0-5) 09/08/21 12:17 U Epithel Cells (Auto) 20-30 /lpf (0-5) H 09/08/21 12:17 Urine Bacteria (Auto) Negative (Negative) 09/08/21 12:17 POC Ur Test NEG (NEG) 09/08/21 12:17 COVID-19 Eval Order Covid19 at [facility] 09/08/21 13:06 SARS-CoV-2 (PCR) NEGATIVE (Negative) 09/08/21 13:06 Impressions Retrograde Pyelogram 09/08/21 00:00 FL retrograde includes kub CLINICAL HISTORY: RT CYSTO STENT COMPARISON STUDY: CT of the abdomen and pelvis September 03, 2021. KUB and renal ultrasound performed earlier today. FLUOROSCOPY TIME: 88 seconds. FLUOROSCOPIC IMAGES: 5 FINDINGS: Fluoroscopy was provided during cystoscopy and right retrograde exam with ureteral stent placement. Possible calculus projects over the inferior right renal calculus. IMPRESSION: Fluoroscopy provided during cystoscopy, right retrograde exam and ureteral stent placement. ACT 112: Negative or not required by law. Electronically signed by: Aj Davidson M.D. 09/08/2021 4:15 PM KUB X-Ray 09/08/21 12:25 XR KUB/Abdomen 1 view CLINICAL HISTORY: right flank pain. COMPARISON STUDY: No previous studies for comparison. TECHNIQUE: Single view of the abdomen. FINDINGS: The bowel gas pattern is within normal limits without evidence for dilatation or obstruction. Surgical clips are present previous cholecystectomy. There is no evidence for organomegaly or gross intra-abdominal mass. There is an approximately 7 mm calcific density superimposed over the second sacral segment on the right. A mid ureteral calculus cannot be excluded. 1 to 2 mm calcification are also seen within the pelvis on the right which probably represent phleboliths. Distal ureteral calculus cannot be excluded. No acute osseous pathology. IMPRESSION: 1.Multiple calcifications are present on the right which may be within the ureter as noted. If indicated clinically, CT of the abdomen and pelvis without contrast would be the study of choice for further evaluation. ACT 112: Negative or not required by law. Electronically signed by: Denton Brooke M.D. 09/08/2021 1:53 PM Renal Ultrasound 09/08/21 12:25 RENAL ULTRASOUND CLINICAL HISTORY: Right flank pain. COMPARISON STUDY: None. TECHNIQUE: Sonography of the kidneys and the urinary bladder was performed. FINDINGS: Right kidney measures 12.7 x 5.7 x 7.1 cm and the left measures 11.8 x 5.1 x 4.8 cm. There is moderate to severe right hydroureteronephrosis. A ureteral calculus is not visualized however these may be sonographically occult. A 9 mm cyst within the left kidney is present. There is no left hydronephrosis. There is a probable 5 mm right renal calculus. There is an apparent 8 mm hypoechoic focus within an upper pole calyx. This is of questionable significance. Bladder is suboptimally assessed given underdistention. Ureteral jets were not visualized. IMPRESSION: 1. Moderate to severe right hydroureteronephrosis. No ureteral calculus identified although these may be occult by sonography. 2. 5 mm right renal calculus. ACT 112: Negative or not required by law. Electronically signed by: Aj Davidson M.D. 09/08/2021 1:02 PM Hospital Course (1) Hydronephrosis, right: (2) Right ureteral calculus: (3) Bilateral nephrolithiasis: 26 yo F with no chronic medical history, no use of prescription or OTC medications and no h/o kidney stone in the past who presents with persistent severe R flank pain from a known 8mm UPJ stone on the right. Hydronephrosis seen on ultrasound. She reports having symptoms intermittently for about one month prior to seeking out care on 09/03 [facility]. Her pain worsened and was uncontrolled prompting current admission to the hospital. She reports her pain is improved since medication given in the [facility] ER. She denied any UTI symptoms, chest pain, SOB, fevers. She remained hemodynamically stable and afebrile throughout her stay. She was sent for ureteral stent placement with Dr. Montalvo on day of admission. In the OR, bladder appeared injected and was globally inflamed. She had a right pyelogram showing right hydronephrosis and kinking of the ureter made stenting difficult. She was evaluated post-operatively on the floor and she was doing very well. She denied any pain and was tolerating PO. She was inclined to stay overnight to ensure everything was improved and stable in the morning. Some intravenous morphine was given overnight and she did have some hypotension the morning of discharge which improved with time away from morphine. At time of discharge urine culture was still pending but UA was negative for infection. She was given Rocephin preoperatively and will receive a short course of Bactrim on discharge. She will continue daily Flomax and follow-up with Dr. Montalvo for definitive stone management soon. BP was 108/75 at time of discharge and she was asymptomatic. She was discharged to home in stable condition. Total Time Total Time Spent Total Time Spent (In Minutes): 60 Discharge Plan Discharge Items Patient Disposition: Home - Self-Care Reason For Visit: NEPHROLITHIASIS, HYDRONEPHROSIS Discharge Diagnosis: R ureteral calculus obstruction with associated hydronephrosis s/p ureteral stent placement Condition on Discharge: Good Activity: Resume your previous activity Non-emergency contact: Primary Care Provider and Urologist Call non-emergency contact if: you have any medication questions, your symptoms worsen, your pain is not controlled, your pain is worsening, your pain is unus ual for you and you have a fever Follow-up/Referrals: Tom Jimenez [Primary Care Provider] - Diet: Regular Addtl Attending Provider Instructions: Please follow-up with primary care provider in one week to ensure you are still doing well since leaving the hospital. Please follow all Urology post-operative instructions including taking short c ourse of Bactrim, which is an antibiotic. Follow-up appointment should be called to you after the weekend by Dr. Montalvo's office staff. Cont Flomax daily until otherwise instructed by Urology on followup. Use Ditropan (oxybutinin) as needed for bladder spasms. It was a pleasure taking care of you! Please call if you have any questions or problems. You can reach a [facility] hospitalist on duty at [facility] 24 hours a day by calling [phone]. Take care of yourself. Alice Frye DO [facility] Pending Studies at Discharge: Yes Stand-Alone Forms: My [facility] Medications and DC Order Prescriptions: New tamsulosin [Flomax] 0.4 mg capsule 0.4 mg PO DAILY Qty: 30 RF: 0 docusate sodium [Col-Rite] 100 mg capsule 100 mg PO BID Qty: 20 RF: 0 oxybutynin chloride 5 mg tablet 5 mg PO Q8H PRN (Reason: bladder spasms) Qty: 30 RF: 0 sulfamethoxazole-trimethoprim [Bactrim DS] 800-160 mg tablet 1 tab PO BID Qty: 6 RF: 0 Continued hydrocodone-acetaminophen 5-325 mg tablet 1 tab PO DAILY PRN (Reason: Pain) RF: 0 diclofenac sodium 50 mg tablet,delayed release (DR/EC) 50 mg PO BID PRN (Reason: Pain) RF: 0 Discontinued tamsulosin 0.4 mg capsule 0.4 mg PO QAM RF: 0 Discharge Orders: Discharge Order (Routine); Ordered 09/09/21 Ordered By: Alice Frye Admission Data Admit Date/Time: 09/08/21 14:05 Attending Provider: Alice Frye Admit Provider: Alice Frye Primary Care Provider: Tom Jimenez Other Providers: Alice Frye ; Rico Montalvo Other Interventions: Discharge Summary Assessment (RN) Last Done: 09/09/21 12:53
== END 2021-09-09 14:29 | disposition home or self-care (01) ==
LOC: ED 11:37 → INTOOBSV 14:05 → 3E 14:05